=== PATIENT | male | born 1945 | race Caucasian/White ===

== ENCOUNTER 2019-03-16 09:35 | Outpatient (CLI) | payer MEDICARE ==
--- NOTE | 2019-03-16 11:08 | CT ---
CT PULMONARY LUNG CANCER SCREENING EXAMINATION WITHOUT IV CONTRAST: Date: 03/16/19 COMPARISON: Prior CT of the thorax dated 12/15/15. FINDINGS: There is a 5.2 mm pulmonary nodule within the anterolateral aspect of the right lower lobe that has s lightly enlarged from the comparison examination in 2016. There is a stable calcified granuloma in th e left lower lobe. There is a sub-4 mm pulmonary nodule within the right lung apex on image 42 of ser ies 2 that is stable since 2016 and is likely benign. No acute osseous abnormality is evident. There is scattered degenerative and osteoarthritic change. There are coronary artery and thoracic aortic ca lcifications. There is postsurgical change of prior CABG. Mitral annular calcifications. Visualized u pper abdomen demonstrates partial visualization of an endograft stent within the proximal abdominal a sheng. There is diffuse fatty infiltration of the liver. IMPRESSION: Lung-RADS Category 3: Indeterminate finding requiring low dose CT imaging follow-up. There is a righ t lower lobe solid nodule that has demonstrated slight interval growth in the interim since 2016. A l ow dose CT follow-up in 3 months is recommended to document stability. Category S: Coronary artery and thoracic aortic calcifications, COPD change, mitral annular calcific ations, and fatty liver. CODE T. POS: TPC
== END 2019-03-16 09:36 | disposition home or self-care (01) ==
LOC: CT 09:35
PROVIDERS: ATTEND Family Medicine
DX: F17.210 Nicotine dependence, cigarettes, uncomplicated (principal); I25.10 Atherosclerotic heart disease of native coronary artery without angina pectoris; I70.0 Atherosclerosis of aorta; K76.0 Fatty (change of) liver, not elsewhere classified; J44.9 Chronic obstructive pulmonary disease, unspecified
CPT/HCPCS: G0297

== ENCOUNTER 2019-04-07 10:19 | Outpatient (CLI) | payer MEDICARE ==
--- NOTE | 2019-04-07 11:04 | ULT ---
ULTRASOUND ABDOMINAL AORTA: HISTORY: Abdominal aortic aneurysm COMPARISON: None FINDINGS: The mid abdominal aorta measures 3.3 x 3.4 x 4 cm in the distal aorta measures 3.5 x 4.9 x 5.9 cm. The right common iliac artery measures 1.2 x 1.3 x 1.2 cm and the left common iliac artery measures 2 .3 x 2.5 x 2.4 cm. IMPRESSION: Aneurysms of the abdominal aorta and the left common iliac artery.
== END 2019-04-07 10:20 | disposition home or self-care (01) ==
LOC: BICULT 10:19
PROVIDERS: ATTEND Family Medicine
DX: Z00.00 Encounter for general adult medical examination without abnormal findings (principal); Z13.6 Encounter for screening for cardiovascular disorders; I71.4 Abdominal aortic aneurysm, without rupture; I72.3 Aneurysm of iliac artery
CPT/HCPCS: 76775

== ENCOUNTER 2019-08-12 13:26 | Outpatient (CLI) | payer MEDICARE ==
--- NOTE | 2019-08-12 14:39 | CT ---
CT pulmonary lung scan without IV contrast INDICATION: Lung cancer screening protocol; history of nicotine dependence;current smoker of 60+-pack -years. COMPARISON: CT pulmonary lung scan dated March 16, 2019 and December 15, 2015 FINDINGS: LUNGS: Nodules\mass: 4 mm right lower lobe pulmonary nodule on image 197 of series 2 is stable. Small subple ural, sub-4 mm pulmonary nodules in the right lower lobe are stable. Calcified granuloma of the left lower lobe is stable. No new suspicious pulmonary nodule identified. Emphysema: Moderate centrilobular emphysema Additional findings: Postprocedural change of coronary artery bypass. There is prominent coronary art tamia and thoracic aortic calcifications. Mediastinum: No lymphadenopathy. Upper abdomen: Partial visualization of an endovascular graft involving the abdominal aorta. There is endovascular graft present within the celiac artery. Osseous structures: No acute abnormality. There is scattered degenerative and osteoarthritic change p resent.. IMPRESSION: Lung-RADS Category 2: Benign- Continue annual screening with LDCT in 12 months Category S: Moderate centrilobular emphysema, post-CABG change, endovascular graft of the abdominal a sheng and celiac artery. Category C: Not applicable.
== END 2019-08-12 13:27 | disposition home or self-care (01) ==
LOC: CT 13:26
PROVIDERS: ATTEND Family Medicine
DX: Z12.2 Encounter for screening for malignant neoplasm of respiratory organs (principal); F17.210 Nicotine dependence, cigarettes, uncomplicated; R91.1 Solitary pulmonary nodule; J43.2 Centrilobular emphysema; Z95.1 Presence of aortocoronary bypass graft; Z95.828 Presence of other vascular implants and grafts
CPT/HCPCS: G0297

== ENCOUNTER 2020-03-21 09:27 | Outpatient (CLI) | payer MEDICARE ==
--- NOTE | 2020-03-21 10:18 | ULT ---
US Abdominal: 03/21/2020 9:40 AM CLINICAL HISTORY: Hemangioma an abdominal aortic aneurysm. STUDY: Complete abdominal ultrasound COMPARISON: 04/07/2019 FINDINGS: Liver: Size: Normal. Echogenicity: Normal. Contour: Smooth. Mass: There is isoechoic to slightly hyperechoic well-circumscribed mass in the right lobe of the abraham er measuring 3.0 cm in size Common bile duct: 4 mm Gallbladder: Normal. Pancreas: Head, body, and tail appear normal. Inferior vena cava: Normal in caliber Aorta: There is aneurysmal dilatation of the infrarenal aorta measuring 5.1 cm in greatest dimension. There appears to be a stent graft within the aneurysm. Spleen: No focal lesions. Spleen measuring 10.9 cm in length. Right kidney: No pelvicalyceal dilatation. There is a small cyst in the inferior pole of the right ki dney measuring 1.2 cm in greatest dimension. Right kidney measuring 10.3 cm in length. Left kidney: No pelvicalyceal dilatation. Left kidney measuring 10.2 cm in length. IMPRESSION: 1. Abdominal aortic aneurysm 2. Hepatic mass may represent a small hemangioma 3. Right renal cyst
== END 2020-03-21 09:28 | disposition home or self-care (01) ==
LOC: BICULT 09:27
PROVIDERS: ATTEND Family Medicine
DX: I71.4 Abdominal aortic aneurysm, without rupture (principal); D18.09 Hemangioma of other sites; N28.1 Cyst of kidney, acquired; K76.89 Other specified diseases of liver
CPT/HCPCS: 93975

== ENCOUNTER 2021-04-09 11:04 | Outpatient (CLI) | payer MEDICARE, OTHER ==
[2021-04-09] MEDS ORDERED: Famotidine/PF 20 mg/2ml Vial SLOW IVP SCH (12:30)
[2021-04-09] MEDS ORDERED: diphenhydrAMINE 50 MG/ML VIAL IVP SCH (12:30)
[2021-04-09] MEDS ORDERED: Hydrocortisone Sod Succ/PF 100 mg/2 ml Vial IVP SCH (12:30)
[2021-04-09] MEDS ORDERED: Sodium Chloride 0.9% 10 ML ONE (12:46)
== END 2021-04-09 11:05 | disposition home or self-care (01) ==
LOC: CT 11:04
PROVIDERS: ATTEND Family Medicine
DX: R91.1 Solitary pulmonary nodule (principal); F17.210 Nicotine dependence, cigarettes, uncomplicated; J43.2 Centrilobular emphysema; R16.0 Hepatomegaly, not elsewhere classified; R91.8 Other nonspecific abnormal finding of lung field
CPT/HCPCS: 71271; 74170; 82565; J1200; J1720; S0028

== ENCOUNTER 2021-11-30 08:25 | Outpatient (CLI) | payer MEDICARE ==
[~2021-11-30 08:25] MED LIST: Iopamidol 370 76% 100 ML VIAL ONE
== END 2021-11-30 08:26 | disposition home or self-care (01) ==
LOC: CT 08:25
PROVIDERS: ATTEND Radiology Radiation Oncology
DX: C22.0 Liver cell carcinoma (principal); R16.0 Hepatomegaly, not elsewhere classified; I71.4 Abdominal aortic aneurysm, without rupture; I77.4 Celiac artery compression syndrome; J90 Pleural effusion, not elsewhere classified; I70.90 Unspecified atherosclerosis; I82.890 Acute embolism and thrombosis of other specified veins
CPT/HCPCS: 71260; 74177; 78306; A9503; Q9967

== ENCOUNTER 2022-12-30 08:35 | Outpatient (CLI) | payer MEDICARE | END 2022-12-30 08:36 | disposition home or self-care (01) | LOC: CT 08:35 | PROVIDERS: ATTEND Radiology Radiation Oncology | DX: C22.0 Liver cell carcinoma (principal); C22.1 Intrahepatic bile duct carcinoma | CPT/HCPCS: 78306; A9503 ==

== ENCOUNTER 2023-01-06 12:14 | Outpatient (CLI) | payer MEDICARE ==
[2023-01-06] MEDS ORDERED: Famotidine/PF 20 mg/2ml Vial IVPB SCH (13:00)
[2023-01-06] MEDS ORDERED: diphenhydrAMINE 50 MG/ML VIAL ONE (13:18)
[2023-01-06] MEDS ORDERED: methylPREDNISolone Sod Succ 40 MG VIAL ONE (13:18)
[2023-01-06] MEDS ORDERED: methylPREDNISolone Sod Succ 40 MG VIAL IVP SCH (13:30)
[2023-01-06] MEDS ORDERED: diphenhydrAMINE 50 MG/ML VIAL IVP SCH (13:30)
== END 2023-01-06 12:15 | disposition home or self-care (01) ==
LOC: CT 12:14
PROVIDERS: ATTEND Radiology Radiation Oncology
DX: C22.1 Intrahepatic bile duct carcinoma (principal)
CPT/HCPCS: 71260; 74177; 82565; J1200; J2920; Q9967; S0028

== ENCOUNTER 2023-02-27 12:05 | Outpatient (CLI) | payer MEDICARE | END 2023-02-27 12:06 | disposition home or self-care (01) | LOC: BICRAD 12:05 | PROVIDERS: ATTEND Radiology Radiation Oncology | DX: C22.0 Liver cell carcinoma (principal) | CPT/HCPCS: 74018 ==

== ENCOUNTER 2023-06-12 08:59 | Outpatient (CLI) | payer OTHER ==
[2023-06-12] MEDS ORDERED: diphenhydrAMINE 50 MG/ML VIAL ONE (10:08)
[2023-06-12] MEDS ORDERED: methylPREDNISolone Sod Succ 40 MG VIAL ONE (10:09)
[2023-06-12] MEDS ORDERED: Famotidine/PF 20 mg/2ml Vial ONE (10:13)
[2023-06-12] MEDS ORDERED: Iopamidol 370 76% 100 ML VIAL ONE (13:44)
== END 2023-06-12 09:00 | disposition home or self-care (01) ==
LOC: CT 08:59
PROVIDERS: ATTEND Radiology Radiation Oncology
DX: C22.0 Liver cell carcinoma (principal); K76.9 Liver disease, unspecified; I71.40 Abdominal aortic aneurysm, without rupture, unspecified; J98.11 Atelectasis; N28.89 Other specified disorders of kidney and ureter; M47.9 Spondylosis, unspecified; Z98.890 Other specified postprocedural states
CPT/HCPCS: 74177; 82565; J1200; J2920; Q9967; S0028